=== PATIENT | female | born 1990 | race Caucasian/White ===

== ENCOUNTER 2017-05-03 06:50 | Inpatient (IN) | payer BC ==
[~2017-05-03 06:50] MED LIST: HYDROcodone/Acetaminophen 5/325 mg Tablet PO PRN; Ibuprofen 800 MG TAB PO PRN; LR / Pitocin 40 units/1000 ml 1,000 ML IV PRN; LR 500 ML/Oxytocin 10 units 500 ML IV SCH; Lidocaine 1% (PF) 30 ML VIAL SC PRN; Ondansetron HCl/PF 4 MG/2 ML Vial IVP PRN; Promethazine HCl 25 MG/ML VIAL IM PRN
[2017-05-03] MEDS: Lactated Ringer's 1,000 ML IV SCH ×2 (07:30→09:50)
[2017-05-03] MEDS ORDERED: Fentanyl 4 mcg/Marc 0.1% Cadd 100 ML ONE (07:43)
[2017-05-03 07:57] VITALS: BMI 37.2
[2017-05-03 07:57] LABS: Hematocrit 37.9 % (36.0-47.0); Mean Platelet Volume 8.5 fL (7.4-10.4); Red Blood Cell (RBC) Count 4.38 mill/uL (4.20-5.40); White Blood Cell (WBC) Count 11.2 thou/uL (4.8-10.8)
[2017-05-03] MEDS ORDERED: Ondansetron HCl/PF 4 MG/2 ML Vial IVP PRN (08:23)
[2017-05-03] MEDS ORDERED: diphenhydrAMINE 50 MG/ML VIAL IVP PRN (08:23)
[2017-05-03] MEDS ORDERED: Promethazine HCl 25 MG/ML VIAL IM PRN (08:23)
[2017-05-03] MEDS ORDERED: Acetaminophen 325 MG TAB PO PRN (08:23)
[2017-05-03] MEDS ORDERED: Naloxone HCl 0.4 mg/ml Vial IVP PRN ×2 (08:23)
[2017-05-03] MEDS ORDERED: Lactated Ringer's 500 ML IV PRN (08:23)
[2017-05-03] MEDS ORDERED: ePHEDrine/0.9% NaCl/PF SYRINGE 50 mg/10 ml SLOW IVP PRN (08:23)
[2017-05-03] MEDS ORDERED: Eucerin (Mineral Oil/Petrolatum,White) 30 gm Jar TOP PRN (08:23)
[2017-05-03] MEDS ORDERED: Fentanyl 4mcg/Marcaine 0.1% Cassette 100 ML EPIDURAL SCH (08:30)
[2017-05-03] MEDS ORDERED: Communication Order-Pharmacy FS SCH (08:30)
[2017-05-03] MEDS ORDERED: FLU VACC QS2017-18 36 mo. & older 0.5 ML SYRINGE IM ONE (08:45)
[2017-05-03] MEDS: LR / Pitocin 40 units/1000 ml 1,000 ML IV SCH ×2 (12:25→15:42)
[2017-05-03] MEDS ORDERED: Benzocaine/Menthol 20-0.5% 60 ML CAN TOP PRN (12:37)
[2017-05-03] MEDS ORDERED: Lanolin Ointment 7 GM TUBE TOP PRN (12:37)
[2017-05-03] MEDS ORDERED: Adacel (T-DAP) 0.5 ML VIAL IM ONE (12:37)
[2017-05-03] MEDS ORDERED: Bisacodyl 10 MG SUPP PR PRN (12:37)
[2017-05-03] MEDS ORDERED: Milk Of Magnesia 30 ML UDCUP PO PRN (12:37)
[2017-05-03] MEDS ORDERED: diphenhydrAMINE 25 MG CAP PO PRN (12:37)
[2017-05-03] MEDS ORDERED: Preparation H Ointment 28 GM TUBE PR PRN (12:37)
--- NOTE | 2017-05-03 12:37 | PDOC.OPDEL ---
OB Operative/Delivery Note Delivery Dr/Surgeon: Kashif Pre-Delivery Diagnosis: active labor Procedure/Post Delivery Dx: spontaneous vaginal delivery Weeks gestation: 39 Anesthesia: epidural - Findings A Sex: male Weight: 8 lb 2 oz - 1 min: 8 - 5 min: 9 - Additional Findings/Plan Placenta delivered: spontaneous Repaired Obstetrical Laceration: 1st degree Estimated blood loss: 200 ml Post delivery plan: routine recovery
[2017-05-03] MEDS ORDERED: Misoprostol 200 MCG TAB VAG SCH (12:45)
[2017-05-03] MEDS: Ibuprofen 800 MG TAB PO SCH ×2 (16:44→23:54)
[2017-05-03] MEDS: Ferrous Sulfate 325 MG TAB PO SCH (17:50)
[2017-05-03] MEDS ORDERED: Lidocaine 2% PF 10 ML AMP (For Epidural Use) ONE (20:22)
[2017-05-03] MEDS: Docusate (Surfak) 240 MG CAP PO SCH (21:02)
[2017-05-04] MEDS: Ibuprofen 800 MG TAB PO SCH ×3 (06:36→21:50)
--- NOTE | 2017-05-04 07:54 | PDOC.PP ---
Post Progress Note Post Day #: 1 Subjective: Feeling well. No concers. Ready to go home if baby is discharged. Vital Signs (12 hours) Temp Pulse Resp BP 05/04/17 05:00 98.5 F 77 18 110/57 L 05/04/17 04:00 98.7 F 74 20 05/04/17 00:00 98.7 F 74 20 05/03/17 20:00 98.7 F 56 L 18 101/54 L Weight Weight 245 lb - Physical Examination General: NAD Cardiovascular: no m/r/g, RRR Respiratory: clear to auscultation bilaterally, non-labored breathing Abdominal: + bowel sounds, lochia, no distention, appropriately TTP Result Diagrams: 05/03/17 07:30 Additional Labs: Post Labs Blood Type O POSITIVE 05/03/17 07:30 Hep Bs Antigen Non-Reactive S/CO (NonReactive) 05/03/17 07:30 - Assessment/Plan Post day 1. . Doing well. Discharge home if baby is released. Has 6 weeks post visit.
[2017-05-04] MEDS: Docusate (Surfak) 240 MG CAP PO SCH ×2 (08:29→21:50)
[2017-05-04] MEDS: Ferrous Sulfate 325 MG TAB PO SCH ×2 (08:31→18:15)
[2017-05-04] MEDS: Prenatal Vitamin 1 TAB PO SCH (08:32)
[2017-05-04] MEDS ORDERED: traMADol HCl 50 MG TAB PO PRN ×2 (12:37)
[2017-05-04] MEDS ORDERED: Zolpidem Tartrate 5 MG TAB PO PRN (12:39)
[2017-05-05] MEDS: Ibuprofen 800 MG TAB PO SCH ×2 (05:14→13:33)
--- NOTE | 2017-05-05 07:42 | PDOC.PP ---
Post Progress Note Post Day #: 2 Subjective: baby should be discharged today. PO intake tolerated: yes Flatus: yes Ambulation: yes Weight Weight 245 lb - Physical Examination General: NAD Cardiovascular: no m/r/g, RRR Respiratory: clear to auscultation bilaterally, non-labored breathing Abdominal: + bowel sounds, lochia, no distention, appropriately TTP Result Diagrams: 05/03/17 07:30 Additional Labs: Post Labs Blood Type O POSITIVE 05/03/17 07:30 Hep Bs Antigen Non-Reactive S/CO (NonReactive) 05/03/17 07:30 - Assessment/Plan post day 2 doing well d/c today f/u 6 weeks.
[2017-05-05 08:40] VITALS: BP 116/73; TEMP 98.4
[2017-05-05] MEDS: Docusate (Surfak) 240 MG CAP PO SCH (09:18)
[2017-05-05] MEDS: Prenatal Vitamin 1 TAB PO SCH (09:19)
[2017-05-05] MEDS: Ferrous Sulfate 325 MG TAB PO SCH (09:19)
== END 2017-05-05 14:05 | disposition home or self-care (01) | DRG 775 ==
LOC: L&D 06:50 → 3SW 15:41
PROVIDERS: ADMIT Obstetrics & Gynecology; ATTEND Obstetrics & Gynecology
PROC: 10E0XZZ Delivery of Products of Conception, External Approach (ICD-10-PCS; principal; 2017-05-04)
PROC: 0HQ9XZZ Repair Perineum Skin, External Approach (ICD-10-PCS; 2017-05-04)
DX: O70.0 First degree perineal laceration during delivery (principal); Z37.0 Single live birth; Z3A.39 39 weeks gestation of pregnancy
CPT/HCPCS: 85027; 86780; 87340; 90715; J2001; J2405; J7120